=== PATIENT | male | born 1985 | race Caucasian/White ===

== ENCOUNTER 2016-03-29 14:40 | Emergency (ER) | payer OTHER ==
[~2016-03-29] VITALS: Ht 182.8 cm; Wt 77.1 kg
[~2016-03-29 14:40] MED LIST: BACTRIM DS 8001 TA1 PO; HYDROCODONE BIT1 T11 PO; KEFLEX500 MG PO
[2016-03-29 14:49] VITALS: BP 118/75
== END 2016-03-29 16:15 | disposition home or self-care (01) ==
LOC: ED 14:40
DX: S46.912A Strain of unspecified muscle, fascia and tendon at shoulder and upper arm level, left arm, initial encounter (principal); X58.XXXA Exposure to other specified factors, initial encounter; Y93.89 Activity, other specified; Y92.89 Other specified places as the place of occurrence of the external cause; Y99.9 Unspecified external cause status

== ENCOUNTER → 2016-03-31 | Outpatient (CLI) | payer OTHER | END | disposition home or self-care (01) | LOC: RAD 18:24 | DX: M25.512 Pain in left shoulder (principal) ==

== ENCOUNTER 2017-12-21 10:49 | Emergency (ER) | payer OTHER ==
[~2017-12-21] VITALS: Ht 182.8 cm; Wt 81.6 kg
[2017-12-21 10:50] VITALS: BP 137/86
== END 2017-12-21 13:15 | disposition left against medical advice (07) ==
LOC: ED 10:49
DX: S20.212A Contusion of left front wall of thorax, initial encounter (principal); W50.0XXA Accidental hit or strike by another person, initial encounter; Y93.89 Activity, other specified; Y92.89 Other specified places as the place of occurrence of the external cause; Y93.61 Activity, american tackle football; Y99.8 Other external cause status

== ENCOUNTER 2021-10-29 20:01 | Emergency (ER) | payer OTHER ==
[2021-10-29 22:42] LABS: BASO # 0.1 10*3/uL (0.0-0.1); BASO % 0.4 % (0.0-1.0); EOS # 0.1 10*3/uL (0.0-0.4); EOS % 0.9 % (1.0-4.0); HEMATOCRIT 48.5 % (42.0-52.0); LYMPH # 1.7 10*3/uL (1.3-4.4); LYMPH % 12.2 % (27.0-41.0); MEAN CELL VOLUME 92.7 fl (80.0-94.0); MEAN CORPUSCULAR HGB CONC 33.4 g/dl (33.0-37.0); MEAN PLATELET VOLUME 9.6 fl (9.6-12.3); MONO # 0.9 10*3/uL (0.1-1.0); MONO % 6.8 % (3.0-9.0); NEUT # 10.8 10*3/uL (2.3-7.9); NEUT % 79.3 % (47.0-73.0); PLATELET COUNT AUTOMATED 257 10*3/uL (130-400); RED BLOOD COUNT 5.23 10*6/uL (4.50-5.90); RED CELL DISTRI WIDTH 11.6 % (0-14.5); WHITE BLOOD COUNT 13.6 10*3/uL (4.8-10.8)
[2021-10-29 23:01] LABS: ALKALINE PHOSPHATASE 84 U/L (45-117); BUN 14 mg/dl (7-24); CHLORIDE 107 mmol/L (98-107); CREATININE 0.92 mg/dL (0.70-1.30); LIPASE 81 U/L (73-393); POTASSIUM 3.7 mmol/L (3.5-5.1); SGOT/AST 25 IU/L (3-35); SGPT/ALT 36 U/L (12-78); SODIUM 140 mmol/L (136-145); TOTAL PROTEIN 7.8 gm/dL (6.4-8.2)
[2021-10-30 00:46] VITALS: BP 138/81
== END 2021-10-30 02:28 | disposition home or self-care (01) ==
LOC: ED 20:01
PROVIDERS: Physician Assistant
DX: R09.89 Other specified symptoms and signs involving the circulatory and respiratory systems (principal)

== ENCOUNTER 2021-11-29 01:40 | Emergency (ER) | payer OTHER ==
[~2021-11-29] VITALS: Ht 182.8 cm; Wt 74.4 kg
[2021-11-29 01:51] VITALS: BP 148/84
[2021-11-29] MEDS ORDERED: PREDNISONE20 M1 PO (02:55)
[2021-11-29] MEDS ORDERED: COLCRYS0.6 M1 PO (02:55)
== END 2021-11-29 02:58 | disposition home or self-care (01) ==
LOC: ED 01:40
DX: M25.571 Pain in right ankle and joints of right foot (principal)